=== PATIENT | male | born 1970 | race Caucasian/White ===

== ENCOUNTER 2024-05-16 17:26 | Emergency (ER) | payer OTHER, SELFPAY ==
[2024-05-16 17:44] VITALS: BP 141/81; PULSE 66; RESP 16; TEMP 37.2; O2SAT 99
--- NOTE | 2024-05-16 17:46 | ED.ABDPAIN ---
HPI - Abdominal Pain General Chief Complaint: Abdominal Pain Stated Complaint: stomach issue Time Seen by Provider: 05/16/24 17:46 Source: patient, RN notes reviewed and old records reviewed Mode of arrival: ambulatory Limitations: no limitations History of Present Illness HPI narrative: 54-year-old male presents to the [facility] with periumbilical discomfort. Unable to reproduce with palpation Patient reports having up periumbilical hernia for a while, over the last couple of weeks has had intermittent discomfort. Last bowel movement was yesterday. No fevers. Denies urinary issues. Has not seek medical treatment for the issue Related Data Home Medications Medication Instructions Recorded Confirmed trazodone 50 mg tablet 50 mg PO QHS 05/16/24 05/16/24 Allergies Allergy/AdvReac Type Severity Reaction Status Date / Time codeine AdvReac Unknown Nausea and Verified 05/16/24 17:36 Vomiting Review of Systems Review of Systems: All systems reviewed & are unremarkable except as noted in HPI and below Constitutional: Constitutional: Reports no additional constitutional complaints Eyes: Eyes: Reports no additional eye complaints ENT: Reports system reviewed and no additional complaints, except as documented Cardiovascular: Cardiovascular: Reports no additional cardiovascular complaints, Denies chest pain and Denies dyspnea Respiratory: Respiratory: Reports no additional respiratory complaints, Denies chest congestion, Denies cough and Denies dyspnea Gastrointestinal: Gastrointestinal: Reports as per HPI, Reports abdominal pain, Denies nausea and Denies vomiting Musculoskeletal: Musculoskeletal: Reports no additional musculoskeletal complaints Integumentary/Breasts: Skin/Breast: Reports system reviewed and no additional complaints, except as docu Neurologic: Reports system reviewed and no additional complaints, except as documented Psychiatric: Psychiatric: Reports no additional psychiatric complaints Allergic/Immunologic: Allergic/Immunologic: Reports no additional allergic/immunologic complaints [facility] Family History Family History Other Family history of type 2 diabetes mellitus Social History Social History Smoking status: Never smoker Alcohol intake: never Comments At the time of my signature, I reviewed and agree with the nursing past medical, surgical, social, and family history. There is no relevant family history pertinent to the patient complaint. Exam Const: General: cooperative, healthy appearing, comfortable, no acute distress, well developed, alert and well nourished Nutritional Appearance: well nourished Orientation/consciousness: patient oriented x3 Limitations: no limitations HENMT: Head: normal to inspection Ears: hearing grossly normal bilaterally and external ears normal Face/Nose/Sinus: Normal external nose present, Normal nares present, Normal nasal mucous membranes and turbinates present, normal facial exam and face symmetric Face and sinus: normal facial exam and face symmetric Eyes: General: appearance normal, both eyes and all related structures Alignment and Position: alignment normal Periorbital: periorbital findings normal Pupils: Equal, round and reactive pupils present EOM: EOMs intact bilaterally Neck: Neck: normal visual inspection, full ROM, no lymphadenopathy and no meningeal signs Chest: Chest palpation & inspection: normal inspection of the chest Resp: Effort & Inspection: normal respiratory effort and able to speak in complete sentences Auscultation: clear to auscultation bilaterally, no crackles, no rales, no rhonchi and no wheezes Cardio: Rate: regular rate Rhythm: regular rhythm GI: GI Palp: Yes abdominal tenderness (Umbilical), Yes Soft to palpation and Yes Hernia present umbilical < 3 cm Auscultation: normal bowel sounds Skin: General
== END 2024-05-16 18:05 | disposition home or self-care (01) ==
PROVIDERS: Emergency Provider Nurse Practitioner
DX: K42.9 Umbilical hernia without obstruction or gangrene (principal)
CPT/HCPCS: 99212; G0463

== ENCOUNTER 2024-06-09 11:37 | Emergency (ER) | payer OTHER, SELFPAY ==
--- NOTE | ~2024-06-09 | CT_ITS ---
EXAMINATION: CT abdomen pelvis w con DATE: 06/09/2024 16:04 INDICATION: Mid abdominal pain. TECHNIQUE: Computed tomography (CT) of the abdomen and pelvis was performed with 100 mL Omnipaque 350 intravenous contrast. Automated exposure control and iterative reconstruction technique were employe d. The dose-length product was 534.35 mGy-cm. COMPARISON: CT abdomen and pelvis 04/17/2019 FINDINGS: The visualized portions of the lung bases demonstrate mild atelectasis. No pleural effusion . The heart size is normal. No pericardial effusion. There is a 5 mm cyst in the liver. The gallbladd er, spleen, pancreas, adrenal glands, and kidneys are normal. There is diverticulosis of the colon wi thout evidence of diverticulitis. There are no dilated loops of bowel. The appendix is normal. There is an umbilical hernia containing fat. There are no pathologically enlarged lymph nodes. There is no free intraperitoneal fluid. There is mild thoracic and lumbar spondylosis. IMPRESSION: 1. Umbilical hernia containing fat. Reviewed, dictated and finalized at location A.
[2024-06-09 11:51] VITALS: BP 142/77; PULSE 76; RESP 16; TEMP 36.6; O2SAT 100
--- NOTE | 2024-06-09 15:04 | ED.ABDPAIN ---
HPI - Abdominal Pain General Chief Complaint: Abdominal Pain <Magnolia Alejandro PA-C - Last Filed: 06/09/24 18:41> Stated Complaint: umbilical hernia pain to abd and testicle <Magnolia Alejandro PA-C - Last Filed: 06/09/24 18:41> Time Seen by Provider: 06/09/24 15:04 <Magnolia Alejandro PA-C - Last Filed: 06/09/24 18:41> Focused HPI: This is a 54-year-old male that presents to the emergency department for mid abdominal pain. Ongoing over the last month intermittently. Reports he has an umbilical hernia. The area has been painful. He is also had some pain on the left side of his abdomen. Reports intermittently seeing some blood in the toilet. Denies fevers or vomiting. GENERAL: Well-appearing, well-nourished, and in no acute distress. HEAD: Normocephalic, atraumatic. CHEST: Clear to auscultation. ?No respiratory distress. HEART: Regular rate and rhythm.? NEURO: ?Alert and oriented x3. Patient screened in triage and initial orders placed.? ?Additional care and disposition to be based upon?diagnostic testing and treatment. <Magnolia Alejandro PA-C - Last Filed: 06/09/24 18:41> History of Present Illness HPI narrative: 54-year-old male presenting with mid abdominal pain. States he has a history of an umbilical hernia and has lately been having more frequent and worsening pain. States that he has pain especially when he is walking or being particularly active. States that he sometimes also has left testicular pain. He denies testicular pain currently, no testicular swelling or erythema. No dysuria or hematuria. States that he has also been seeing small amount of blood with bowel movements. No nausea or vomiting. No fevers. No further complaints. <Becca Matos MD - Last Filed: 06/10/24 18:57> Related Data Home Medications: Home Medications Medication Instructions Recorded Confirmed trazodone 50 mg tablet 50 mg PO QHS 05/16/24 05/16/24 <Magnolia Alejandro PA-C - Last Filed: 06/09/24 18:41> Allergies/Adverse Reactions: Allergies Allergy/AdvReac Type Severity Reaction Status Date / Time codeine AdvReac Unknown Nausea and Verified 06/09/24 11:38 Vomiting <Magnolia Alejandro PA-C - Last Filed: 06/09/24 18:41> Review of Systems Review of Systems: All systems reviewed & are unremarkable except as noted in HPI and below <Becca Matos MD - Last Filed: 06/10/24 18:57> [facility] Family History Family History: Family History Other Family history of type 2 diabetes mellitus <Magnolia Alejandro PA-C - Last Filed: 06/09/24 18:41> Social History Social History: Social History Smoking status: Never smoker Alcohol intake: never <Magnolia Alejandro PA-C - Last Filed: 06/09/24 18:41> Exam Narrative: GENERAL: Well-appearing, in no acute distress, very pleasant and cooperative HEAD: Normocephalic, atraumatic. EYES: PERRLA and EOMI. ENT: Mucous membranes moist. NECK: Supple. CHEST: Clear to auscultation. No respiratory distress. HEART: Regular rate and rhythm ABDOMEN: Soft, nontender, nondistended EXTREMITIES: Normal range of motion SKIN: Warm, dry, no rash. NEURO: Alert and oriented x3. PSYCH: Normal mood and affect. <Becca Matos MD - Last Filed: 06/10/24 18:57> Course Vital Signs Vital signs: Vital Signs Temperature 98 F 06/09/24 11:51 Pulse Rate 76 06/09/24 11:51 Respiratory Rate 16 06/09/24 11:51 Blood Pressure 142/77 H 06/09/24 11:51 Pulse Oximetry 100 06/09/24 11:51 Oxygen Delivery Room Air 06/09/24 11:51 Temperature 98 F 06/09/24 11:51 Pulse Rate 70 06/09/24 17:14 Respiratory Rate 16 06/09/24 17:14 Blood Pressure 125/78 06/09/24 17:14 Pulse Oximetry 100 06/09/24 17:14 Oxygen Delivery Room Air 06/09/24 16:50 <Magnolia Alejandro PA-C - Last Filed: 06/09/24 18:
[2024-06-09 15:37] LABS: Basophils Absolute Auto 0.1 K/mm3 (0.0-0.1); Basophils Percent Auto 0.9 % (0.2-1.2); Eosinophils Absolute Auto 0.3 K/mm3 (0-0.3); Eosinophils Percent Auto 3.4 % (0-4.4); Hematocrit 48.9 % (42.0-52.0); Hemoglobin 16.7 g/dL (14.0-18.0); Immature Granulocyte Absolute 0.02 K/mm3 (0.00-0.031); Immature Granulocyte Percent A 0.2 % (0-0.5); Lymphocytes Absolute Auto 2.52 K/mm3 (0.9-3.2); Lymphocytes Percent Auto 26.4 % (18.3-44.2); Mean Corpuscular HGB Conc 34.2 g/dl (32-36); Mean Corpuscular Hemoglobin 30.2 pg (26-34); Mean Corpuscular Volume 88.4 fl (80-100); Mean Platelet Volume 9.6 fl (7.4-10.4); Monocytes Absolute Auto 0.9 K/mm3 (0.1-0.6); Monocytes Percent Auto 9.1 % (2.6-8.5); Neutrophils Absolute Auto 5.7 K/mm3 (1.3-6.7); Platelet Count Result 162 k/mm3 (150-375); Red Blood Count 5.53 M/mm3 (4.6-6.20); Red Cell Distribution Width 12.2 % (11.5-14.5); White Blood Count 9.6 K/mm3 (4.5-10.0)
[2024-06-09 15:47] LABS: Alanine Aminotransferase 29 U/L (6-50); Albumin Level 4.9 g/dL (3.5-5.1); Alkaline Phosphatase 74 U/L (38-126); Anion Gap 9 mmol/L (4-12); Aspartate Amino Transferase 41 U/L (17-59); Bilirubin,Total 0.5 mg/dL (0.2-1.3); Blood Urea Nitrogen 25 mg/dL (9-20); Calcium 9.4 mg/dL (8.4-10.2); Carbon Dioxide 31 mmol/L (22-30); Chloride 100 mmol/L (98-107); Estimated CRCL calculation 66 ml/min; Estimated Glomerular Filt Rate > 60; Glucose 101 mg/dL (65-110); Lipase 144 U/L (23-300); Potassium 4.2 mmol/L (3.4-5.0); Sodium 140 mmol/L (137-145)
[2024-06-09 15:52] LABS: Prothrombin Time 13.3 Seconds (11.1-14.7)
[2024-06-09 15:53] LABS: Partial Thromboplastin Time 30.3 Seconds (22.3-36.8)
[2024-06-09 16:03] LABS: Add Urine Microscopic? NO; Appearance Urine Clear (Clear); Bilirubin Urine Negative (Negative); Blood Urine Negative (Negative); Color Urine Yellow (Yellow); Glucose Urine UA Negative (Negative); Ketones Urine Negative (Negative); Leukocyte Esterase Ur Negative LEU/UL (Negative); Nitrate Urine Negative (Negative); Protein Urine Negative (Negative); Specific Grav Ur 1.016 (1.001-1.035); Urobilinogen Urine 0.2 mg/dL (<2.0)
[2024-06-09 16:50] VITALS: BP 125/81; PULSE 71; RESP 15; O2SAT 100
[2024-06-09 17:14] VITALS: BP 125/78; PULSE 70; RESP 16; O2SAT 100
== END 2024-06-09 18:21 | disposition home or self-care (01) ==
LOC: ANHED 17:51
PROVIDERS: Physician Assistant; Emergency Provider Emergency Medicine
DX: K42.9 Umbilical hernia without obstruction or gangrene (principal)
CPT/HCPCS: 36415; 74177; 80053; 81003; 83690; 85025; 85610; 85730; 99284; Q9967

== ENCOUNTER 2024-06-28 00:37 | Day surgery (SDC) | payer OTHER, SELFPAY ==
[2024-06-22 13:04] VITALS: BMI 28.7
--- NOTE | 2024-06-22 13:10 | PC.NURSE ---
Report to the Outpatient Waiting Room, entrance under the green pavilion located off [facility], at time _1115_ on date _[id number]_. Planned Procedure Time: _115pm_.? Time changes happen often and if your time is changed the preop area will call you the afternoon before. - You and your visitor will be asked to self-screen and do not enter if you have any COVID symptoms. Please call surgeon if you need to reschedule. - A mask is optional within the hospital at this time. Patients may have clear liquids (water, carbonated beverages, clear teas, apple juice) until 3 hours prior to surgery with a maximum of 20 ounces. - No food from midnight until time of surgery and no smoking Take only the following medications with a SIP of water on the morning of surgery: ___None DO NOT STOP ANY OF YOUR OTHER PRESCRIPTION MEDICATIONS PRIOR TO SURGERY EXCEPT THE FOLLOWING Medications to discontinue per physician __All vitamins and supplements. Date to take last jrvd___[id number]____ Please no make-up, nail kinyarwanda, hairspray, perfume, deodorant, or body powder the day of surgery.? No jewelry (including any body piercings) or valuables the day of surgery, leave them at home.? Please take a shower or bath the night before, or the morning of, surgery with an antibacterial soap.? Wear comfortable, loose fitting clothing.? - Jewelry must be removed prior to entering the operating room.? Rings and piercings that are not removed may be cut off. - The hospital will not accept responsibility for valuables.? - Please leave all valuables, including medications, at home the day of surgery. If you are going home after surgery, a licensed school bus driver/custodian must drive you home.? - NO public transportation without another adult if you receive anesthesia. - We recommend that an adult stay with you for 24 hours following discharge. - We also recommend that you do not drive, make important decision, drink alcoholic beverages, or take any drugs that were not prescribed by your health care provider for at least 24 hours after your discharge time. Follow any additional instructions given to you from your surgeon. Telephone instructions given to _Merrill___and asked if any additional questions and then verbalized understanding. Patient advised to call surgeon office or pre surgery nurse liaison [phone] if any additional questions.
[2024-06-28] VITALS (8 sets, daily range): BP systolic 93–138; BP diastolic 52–74; PULSE 60–73; RESP 12–16; TEMP 36.2–36.6; O2SAT 97–100
[2024-06-28] MEDS: ACETAMINOPHEN 500 MG TABLET 1000 MG PO (11:50)
[2024-06-28] MEDS: LACTATED RINGERS 1,000 ML 30 ML IV CONT (11:55)
[2024-06-28] MEDS: KETOROLAC 15 MG/ML VIAL (*BKC) IV PUSH ×2 (12:00→14:33)
--- NOTE | 2024-06-28 12:50 | P.PNAN_ITS ---
Anes - Initial Pre Proc Eval Procedure: Operation Date: 06/28/24 13:15 Proposed Procedures p Open Umbilical Hernia Repair - Macario Saab MD Date/Time: 06/28/24 12:50 Surgeon: Macario Saab MD Pre Op Diagnosis: Umbilical Hernia Patient Data Age: 54 Gender: M Height: 1.78 m Weight: 88.5 kg Last Vital Signs Temp 97.2 F L 06/28/24 11:45 Pulse 73 06/28/24 11:45 Resp 16 06/28/24 11:45 BP 138/74 06/28/24 11:45 Pulse Ox 100 06/28/24 11:45 O2 Del Method Room Air 06/28/24 11:45 Allergies Allergy/AdvReac Type Severity Reaction Status Date / Time codeine AdvReac Unknown Nausea and Verified 06/22/24 13:00 Vomiting Home Medications Medication Instructions Recorded Confirmed Type trazodone 50 mg tablet 50 mg PO QHS 05/16/24 06/28/24 History coenzyme Q10 100 mg capsule 100 mg PO DAILY 06/22/24 06/28/24 History (CoQ-10) iodine 1 ea miscellaneous Q48H 06/22/24 06/28/24 History krill oil 1,000 mg-om3 130 mg-dha 1 cap PO DAILY 06/22/24 06/28/24 History 40 mg-epa 80 [id number]-[id number]-astax cap (Krill Oil ([place] 3 and 6)) multivitamin 1 tablet PO DAILY 06/22/24 06/28/24 History prasterone (dhea) 25 mg tablet 25 mg PO DAILY 06/22/24 06/28/24 History (DHEA) vitamin D3 125 mcg (5,000 1 cap PO DAILY 06/22/24 06/28/24 History unit)-vitamin K2 180 mcg capsule Patient hx anesthesia problems: none Family hx anesthesia problems: none Results Review: All pre-operative results and documents have been reviewed as part of the pre- operative evaluation. [facility] Family History Family History Other Family history of type 2 diabetes mellitus Social History Social History Smoking status: Never smoker Alcohol intake: never Do You Feel Safe in your Home?: Yes Lack of Transportation: No Lack of Food: Never True Current Housing: I Have Housing Concerned About Future Housing: No Difficulty Paying Gas/Electric Bills: No Difficulty Paying for Meds: No Currently Unemployed: No Education: Bachelor's Degree Difficulty w/ Childcare or Family Care: No Living arrangements: with family Spiritual care concerns: No Anes - Eval Final PreProcedure Day of Procedure 06/28/24 12:50 Patient weight: overweight Heart: regular rate and rhythm Lungs: clear to auscultation Airway: Mallampati scale class II and special considerations (Perm retainer on the lower aspect. ) Neurological: alert and oriented Last oral intake: >/= 8 hours ASA classification: I Emergent: no Anesthetic plan: proceed Anesthesia type and monitoring: general LMA and standard monitoring Results Review: All pre-operative results and documents have been reviewed as part of the pre- operative evaluation. Pt active w lifiting wts, walking, less w hernia present. No cp or sob w walking 1-2 fos. Informed Consent: The patient's anesthetic plan and its attendant risks and benefits were discussed with the patient/family/POA. Questions were solicited and answers provided to the satisfaction of the patient/family/POA.
--- NOTE | 2024-06-28 13:40 | WPDHPUPDATE1 ---
History and Physical Update Update Date/Time: 06/28/24 13:40 History and Physical has been reviewed, including an updated exam of the patient. There are NO changes in the patient's condition. Risks, benefits, and alternatives have been discussed and questions answered. Patient agrees to proceed with procedure.
[2024-06-28] MEDS: ceFAZolin 2 GM/D5W 50 ML 2 GM/50 ML BAG IVPB (13:49)
[2024-06-28] MEDS: LIDO 1%/EPINEPHRINE 1:100,000 20 ML VIAL 15 ML INFILTRATE (14:24)
--- NOTE | 2024-06-28 14:45 | W.PM.PROC2 ---
Procedure Note - Detailed Date of Procedure 06/28/24 Pre-op Diagnosis Umbilical Hernia Post-op Diagnosis Same Procedure Performed Open umbilical hernia repair without mesh. Surgeon Macario Saab MD Anesthesia General Indications Patient is a 54-year-old white male presented with complaints of a small bulge in his umbilical region. It has become a little larger and has started to cause some minor soreness. On exam he has a small reducible umbilical hernia. He presents now for elective repair without mesh. Findings Patient reducible umbilical hernia with a defect at the fascia measuring about 1cm. There is only preperitoneal fat within the hernia defect. Description of Procedure After informed consent was obtained patient was brought to the operating room was placed supine position and general endotracheal anesthesia was administered. The abdomen was then prepped and draped usual sterile fashion. Time-out was then performed correctly identifying the patient as well as procedure to be performed. He was given perioperative IV antibiotics. I then made a small curved incision in the upper portion of the umbilicus approximately 9 o'clock to 3 o'clock position. Dissection was carried down through the dermis of the skin with a scalpel and then once into the subcutaneous tissues I dissected down around the umbilical stalk utilized electrocautery. I then encircled the umbilical stalk with blunt clamp dissection and then disconnected the overlying umbilical skin from the underlying hernia sac with electrocautery. I then evaluated the size the fascial defect was only about 1cm in diameter. The contents were preperitoneal fat and was reduced below the level the fascia. Three separate interrupted 0 Ethibond sutures taking good 1cm bites of fascia on each side were placed to close the defect. The edges of the fascia closed easily without any tension. Then irrigated the area with sterile saline solution. I injected 1% lidocaine mixed with 0.5% Marcaine with some epinephrine around the area for local anesthetic effect. I then tacked down the dermis of the umbilicus to recreate the umbilical stalk to the fascia utilizing 3-0 Vicryl suture recreating the inverted umbilicus. Then closed the subcutaneous tissue with interrupted 2-0 Vicryl sutures and 3-0 Vicryl sutures. The skin edges were then approximated utilizing a running subcuticular 4-0 Monocryl suture. Incision was then cleaned and then skin glue was applied. The patient tolerated the procedure well no complications. All sponges, needles, and instrument counts were correct at the end procedure. EBL was _5__cc. The patient was awakened and taken to recovery in stable and satisfactory condition. Implants None Estimated Blood Loss 5 Drains No Packing No Pathology None sent Complications No immediate complications Condition Stable Disposition PACU [facility] Billing Surgery - Charge Forward: Surgery Billing
--- NOTE | 2024-06-28 16:11 | SUR.PHASEII ---
1615 PT MEETS ANESTHESIA DISCHARGE CRITERIA. DISCHARGE INSTRUCTIONS GIVEN TO PATIENT- ALL QUESTIONS ANSWERED. WAITING FOR A RIDE HOME FROM SPOUSE. ON HOLD.
== END 2024-06-28 16:20 ==
PROVIDERS: Visit Provider Surgery
PROC: (CPT 49591; principal; 2024-06-28 13:15)
DX: K42.9 Umbilical hernia without obstruction or gangrene (principal)
CPT/HCPCS: 49591; A9270; J0690; J1100; J1171; J1644; J1885; J2003; J2004; J2250; J2371; J2405; J2704; J3010; J7120